=== PATIENT | female | born 1985 | race Caucasian/White ===

== ENCOUNTER 2017-04-27 16:44 | Emergency (ER) | payer MEDICAID ==
[~2017-04-27] VITALS: Ht 154.9 cm; Wt 58.5 kg
[~2017-04-27 16:44] MED LIST: PREN1TAB49 PO
[2017-04-27 16:47] VITALS: Ht 154.9 cm; Wt 58.5 kg
[2017-04-27] MEDS ORDERED: BEN25 PO (17:13)
[2017-04-27] MEDS ORDERED: MUPI22OI2 TOP (17:14)
--- NOTE | 2017-04-27 17:22 | ERD ---
ER Documentation Chief Complaint Date/Time DATE: 04/27/17 TIME: 17:19 Chief Complaint Complains of rash to face HPI 32-year-old female patient with no significant past medical history presents to the ED complaining of a rash on her face that started yesterday that extends to her neck region. Reports that it is itchy but denied any exposure to pets or insects. Denies any use of soaps or detergents. States that after the rash erupted she tried applying Vaseline which did not alleviate her symptoms. States that she has been scratching the area. Denies any chest pain or shortness of breath, abdominal pain, nausea, vomiting, painful rash, fever, chills. ROS All systems reviewed and are negative except as per history of present illness. Medications Home Meds Active Scripts Mupirocin* (Bactroban*) 2% -22 Gram Oint...g., 1 APPLIC TOP BID for 7 Days, EA Prov:BROWN GALINDO PA-C 04/27/17 Diphenhydramine Hcl* (Benadryl*) 25 Mg Cap, 25 MG PO Q6, #30 CAP Prov:BROWN GALINDO PA-C 04/27/17 Reported Medications Vits W-Ca,Fe,Fa(<1MG) () 1 Tab Tablet, 1 TAB PO 12/26/11 Allergies Allergies: Coded Allergies: No Known Drug Allergies (Verified Allergy, Mild, 03/06/12) Physical Exam Vitals Vital Signs Date Time Temp Pulse Resp B/P Pulse Ox O2 Delivery O2 Flow Rate FiO2 04/27/17 16:47 98.1 71 20 123/58 98 Physical Exam Const: [id number], well-nourished. In no acute distress. Head: Atraumatic, normocephalic Eyes: Normal Conjunctiva without injection. No purulent discharge. PERRL. EOMI ENT: Normal external ear. Ear canal without erythema. Tympanic membrane pearly cardenas without effusion or bulging. Nasal canal clear with normal turbinates. Moist oropharynx without tonsillar exudates. Non-erythematous pharynx. Uvula midline. No drooling. No trismus. Neck: Full range of motion. No meningismus. No cervical lymphadenopathy. Resp: Clear to auscultation bilaterally. No wheezing, rhonchi, rales, or crackles. No accessory muscle use. No retractions. Cardio: Regular rate and rhythm. No murmurs, rubs or gallops. Skin: No petechiae, purpura. Inflamed hair follicles with erythematous base with slight papular appearance. No fluctuance or induration. No purulent discharge. No bleeding noted. Ext: No cyanosis, or edema. Neur: Awake and alert. Psych: Normal Mood and Affect Procedures/MDM This is a 32-year-old female patient with no significant past medical history presents the ED complaining of a rash of her face and neck region. Patient is afebrile and nontoxic-appearing. Patient has normal vital signs. Patient symptoms could likely be folliculitis versus acne. Low suspicion for scabies, SJS/TEN, erythema multiforme, sepsis, cellulitis, necrotizing fascitis, gangrene , meningococcemia or other emergent conditions. Discharge medications: Bactroban, Benadryl Follow up with primary care physician in 1-2 days. Instructed patient to return to the ED sooner for any worsening symptoms. Patient's questions were answered. Patient understood and agreed with discharge plan. Patient discharged stable. Departure Diagnosis: Primary Impression: Rash and other nonspecific skin eruption Condition: Stable Patient Instructions: Self-Care for Skin Rashes, Folliculitis Referrals: ANEESH MARTINEZ MD (PCP) [facility] Usted se swan hecho un examen mdico de control que le indica que no est en derek condicin que requiera tratamiento urgente en el Departamento de Emergencia. Un estudio ms profundo y el tratamiento de engle condicin pueden esperar sin ningn riesgo hasta que usted sea atendida/o en el consultorio de engle mdico o derek cl dennis. Es responsabilidad suya arreglar derek meagan para el seguimiento del rosie. MANEJO DE CONDICIONES NO URGENTES EN EL FUTURO 1) Si usted tiene un mdico de atencin primaria: Usted debera llamar a engle mdico de atencin primaria antes de venir al departamento de emergencia. Despus de las horas de consultorio, engle doctor o engle asociado/a est disponible por telfono. El mdico o enfermero de fuentes en el servicio telefnico puede asesorarle por wendy medio para atender el problema, o rosie contrario se puede programar derek meagan. 2) Si usted no tiene un mdico de atencin primaria: Llame al mdico o clnica de referencia que aparece abajo mindy las horas de consultorio para hacer derek meagan para que le vean. CLINICAS: [facility] [phone] [address] [facility] [phone] [facility] [phone] [place] [id number] [phone] [place] [id number] [phone] [facility] [phone] [address] [facility] [facility] () Usted se swan hecho un examen mdico de control que le indica que no est en derek condicin que requiera tratamiento urgente en el Departamento de Emergencia. Un estudio ms profundo y el tratamiento de engle condicin pueden esperar sin ningn riesgo hasta que usted sea atendida/o en el consultorio de engle mdico o derek cl dennis. Es responsabilidad suya arreglar derek meagan para el seguimiento del rosie. MANEJO DE CONDICIONES NO URGENTES EN EL FUTURO 1) Si usted tiene un mdico de atencin primaria: Usted debera llamar a engle mdico de atencin primaria antes de venir al departamento de emergencia. Despus de las horas de consultorio, engle doctor o engle asociado/a est disponible por telfono. El mdico o enfermero de fuentes en el servicio telefnico puede asesorarle por wendy medio para atender el problema, o rosie contrario se puede programar derek meagan. 2) Si usted no tiene un mdico de atencin primaria: Llame al mdico o condado institucions de referencia que aparece abajo mindy las horas de consultorio para hacer derek meagan para que le vean. SI USTED NO PUEDE PAGAR PARA JOÃO UN MEDICO puede ir a: [address] [place] [address] [facility] [address] [place] [address] [facility] [address] [place] [address] [facility] [facility] [address] [place], [place] [id number] Additional Instructions: Llame al doctor rhea derek MEAGAN PARA DENTRO DE 2 BLAIR para derek derivacin a un dermatlogo. Dgale a la secretaria que nosotros le instruimos hacer esta meagan.Avise o llame si engle condicin se empeora antes de la meagan. Regresa aqui si peor o no mejor. BROWN GALINDO PA-C Apr 27, 2017 17:22 BROWN GALINDO PA-C Apr 27, 2017 17:22
== END 2017-04-27 17:14 | disposition home or self-care (01) ==
LOC: EDUNIT# 16:44 → E/R 16:44
DX: R21 Rash and other nonspecific skin eruption (principal)
CPT/HCPCS: 99283